=== PATIENT | male | born 1990 | race African-American/Black ===

== ENCOUNTER 2021-09-08 08:20 | Emergency (ER) | payer OTHER ==
[~2021-09-08] VITALS: Ht 188 cm; Wt 117.9 kg
[2021-09-08] MEDS ORDERED: AZITHROMYCIN250 MG PO (09:05)
[2021-09-08] MEDS ORDERED: GUAIFEN-CODEINE10 ML PO ×3 (09:07→09:24)
== END 2021-09-08 09:33 | disposition home or self-care (01) ==
LOC: FSED 08:54
DX: R05.9 Cough, unspecified (principal); J20.9 Acute bronchitis, unspecified; I10 Essential (primary) hypertension; Z91.14 Patient's other noncompliance with medication regimen
CPT/HCPCS: 83518; 87400; 99282